=== PATIENT | female | born 1945 | race Two or more races ===

== ENCOUNTER 2024-08-12 08:40 | Day surgery (SDC) | payer MEDICARE, SELFPAY ==
--- NOTE | 2024-08-11 10:51 | EKG_ITS ---
[facility] Test Date: 2024-08-11 Pat Name: JENNIFER COSME Department: Room: - Gender: Female Filenet Developer: VAUGHN : 1945 Requested By: Raffy Genao Order Number: [id number] Reading MD: Raffy Genao Measurements Intervals Mcpherson Rate: 63 P: 38 MI: 158 QRS: 40 QRSD: 97 T: 39 QT: 406 QTc: 418 Interpretive Statements SINUS RHYTHM No previous ECG available for comparison /[id number]
--- NOTE | 2024-08-11 11:05 | XR_ITS ---
Examination: Left wrist 2 views Technique one AP lateral left wrist 2 views Exam date and time: August 11, 2024 1235 hours INDICATIONS: History wrist fracture FINDINGS: Subacute healing fracture distal radial metaphysis On the lateral view the distal radius is dorsally displaced at least 5 mm I do not have prior films for comparison IMPRESSION: Subacute healing fracture distal radial metaphysis
[2024-08-11 11:10] VITALS: BMI 42.7
[2024-08-11 13:16] LABS: Basophils % (Auto) 1 % (0-2.5); Eosinophils # (Auto) 0.1 Thou/mm3 (0.0-0.5); Eosinophils % (Auto) 2 % (0-10); Hematocrit 43.6 % (36.0-46.0); Hemoglobin 14.2 g/dL (12.0-16.0); Immature Granulocytes % (Auto) 0 % (0-0); Immature Granulocytes Auto 0.01 Thou/mm3 (0.00-0.00); Lymphocytes # (Auto) 1.6 Thou/mm3 (1.0-4.8); Lymphocytes % (Auto) 25 % (10-50); Mean Corpuscular HGB Conc 32.6 g/dl (31.0-37.0); Mean Corpuscular Hemoglobin 29.2 pg (25.0-35.0); Mean Corpuscular Volume 90 fL (80-100); Monocytes # (Auto) 0.6 Thou/mm3 (0.0-0.8); Monocytes % (Auto) 9 % (0-12); Neutrophils # (Auto) 4.1 Thou/mm3 (1.8-7.7); Neutrophils % (Auto) 64 % (37-80); Nucleated Red Blood Cell % 0 /100 WBC (0); Platelet Count 262 Thou/mm3 (140-440); RDW Standard Deviation 42.1 fL (36.4-46.3); Red Blood Count 4.86 Miln/mm3 (4.00-5.20); White Blood Count 6.4 Thou/mm3 (3.6-11.0)
[2024-08-11 13:24] LABS: INR 0.9 (0.9-1.3); Partial Thromboplastin Time 27.1 Seconds (22.0-36.0); Prothrombin Time 10.3 Seconds (9.0-12.2)
[2024-08-11 13:28] LABS: Alanine Aminotransferase 13 U/L (10-49); Albumin/Globulin Ratio 1.5 (1.2-2.2); Alkaline Phosphatase 120 U/L (46-116); Anion Gap 5 (7-16); Aspartate Amino Transferase 26 U/L (0-34); BUN/Creatinine Ratio 16 Ratio (12-20); Bilirubin,Total 1.5 mg/dL (0.3-1.2); Blood Urea Nitrogen 14 mg/dL (9-23); Calcium 10.3 mg/dL (8.3-10.6); Calcium (Corrected) 10.3 mg/dL (8.5-10.1); Chloride 103 mMol/L (98-107); Creatinine (Component) 0.9 mg/dL (0.6-1.3); Estimated Creatinine Clearance 40.2 mL/min (>60); Globulin 3.3 gm/dL (2.3-3.5); Glucose 100 mg/dL (74-106); Osmolality,Calculated 276 (275-295); Sodium 138 mMol/L (136-145); Total Protein 8.3 gm/dL (5.7-8.2); eGFR > 60 See Note
--- NOTE | 2024-08-11 14:17 | SUR.PREOP ---
Cardiac records reviewed with Dr Isaac.
--- NOTE | 2024-08-11 15:19 | SUR.PREOP ---
Pt notified to come in at 0900 tomorrow for surgery.
[2024-08-12] VITALS (10 sets, daily range): BP systolic 94–178; BP diastolic 55–87; PULSE 68–91; RESP 15–20; TEMP 36.2–36.9; O2SAT 95–100; BMI 28.5
--- NOTE | 2024-08-12 11:00 | XR_ITS ---
Examination: Left wrist 3 views Fluoroscopy Exam date and time: August 12, 2024 1306 hours INDICATIONS: Fracture distal radial metaphysis, operative reduction internal fixation wrist fracture today TECHNIQUE AND FINDINGS: 3 spot fluoroscopic films of the wrist Operative reduction internal fixation fracture distal radius with satisfactory alignment Orthopedic hardware satisfactory position Fluoroscopy 23 seconds radiation dose 0.43 milligray IMPRESSION: Operative reduction internal fixation fracture distal radius with satisfactory alignment
--- NOTE | 2024-08-12 12:40 | XR_ITS ---
Examination: Right wrist 2 views Technique one AP lateral right wrist 2 views Exam date and time: August 12, 2024 1324 hours INDICATIONS: Status post operative reduction internal fixation fracture distal radius FINDINGS: Operative reduction internal fixation fracture distal radius Satisfactory alignment Sideplate screw satisfactory position IMPRESSION: Operative reduction internal fixation fracture distal radius with satisfactory alignment
--- NOTE | 2024-08-12 12:46 | SUR.PHASEI ---
1246: Pt. AAOx4, vitals stable, breathing unlabored, no complaint of pain or nausea, dressing to left wrist CDI, no active bleed noted, cap refill to bilateral fingers less than 3 seconds, pt. able to wiggle bilateral fingers, report received from MD Isaac and Chata HACKETT.
--- NOTE | 2024-08-12 12:48 | PD.SUROPNT ---
Date of Procedure 08/12/24 Pre Op Diagnosis 4 weeks old angulated impacted displaced fracture left distal radius Post Op Diagnosis Same Procedure Open reduction internal fixation left distal radius with volar plate and interlocking screw. Synthes implant. 4-hole horizontal and 5 hole vertical volar plate Findings Refer dictation Procedure Description Patient was given general endotracheal anesthesia. Once satisfactory anesthesia achieved a tourniquet was placed on left upper arm. Following that part was thoroughly prepped and draped. Left arm block was also given Intravenous antibiotics was given at the time of anesthesia. After using Esmarch the tourniquet pressure was raised to 250 mmHg. I skin incision was made from the wrist crease extending proximally for about 3 to 4 inches long. Deeper dissection was carried out. The subcu tissue and fascia was incised. Following that a plane was developed between the brachioradialis muscle and flexor carpi radialis muscle. The radial nerve and artery was protected on the brachioradialis and median nerve was protected under flexor carpi radialis. Deeper dissection was carried out. The pronator quadratus muscle was encountered which was reflected. Fracture site was exposed. With the help of [place], curette the soft tissue interposed between the fracture fragment was removed Wound was irrigated with antibiotic solution every 4 to 5 minutes The help of periosteal elevator the distal fracture fragment was levered and was reduced. Position checked under C arm and found to be quite good Following that a 4 hole horizontal and 5 hole vertical volar plate was mounted over the flexor aspect of the distal radius. Once satisfactory position was achieved a K wire was passed to hold the plate in its position. Following that another drill hole was made over the vertical limb and appropriate size cortical screw was placed. Following that 2 screws in sequence were placed on the horizontal limb. Those were cortical screws and while tightening the volar tilt was maintained at the wrist crease. Following that another cortical screw was placed on the vertical limb. The K wire was removed. The position checked under C arm in both AP and lateral and was extremely good. The volar tilt was maintained and fracture was reduced almost anatomically Following that 2 interlocking screws were placed distally including radial styloid process was captured with the interlocking screw. On the vertical limb 2 interlocking screws was placed after drilling it. Wound was irrigated with antibiotic solution every 4 to 5 minutes Position was checked under C arm in both AP and lateral and found to be very good There was done with the help of 2-0 Vicryl in an interrupted fashion. Skin was closed with rosario After cleaning the wound with hydrogen peroxide solution a sterile dressing was applied. Short arm splint was applied and tourniquet pressure was released. Patient tolerated procedure well. Estimated blood loss 5 mL. Prognosis in this case is fair to good Anesthesia GETA and other Pathology / specimen None Estimated Blood Loss 5 Surgeon Raffy Mckeon MD Surgical Staff Operation Date: 08/12/24 11:15 Case Staff Anesthesiologist: Sundar Isaac RNplayer development manager: Randy Stephens
[2024-08-12] MEDS: fentaNYL CIT INJ 50 mCg/ML AMP 2ML IV ×2 (13:00→13:09)
[2024-08-12] MEDS: HYDROmorphone INJ 2 MG/ML VIAL 0.5 MG IV (13:38)
--- NOTE | 2024-08-12 14:36 | SUR.PHASEII ---
pt awake and alert, breathing unlabored on room air. v/s stable. pt dressing to left arm cdi, arm sling in place. pt able to ambulate to wheelchair with steady gait. d/c instructions given with granddaughter Starla in room, all questions answered. pt d/c via wheelchair with all belongings.
--- NOTE | 2024-08-12 15:16 | PD.ANESPROG ---
Documentation for date of: 08/12/24 ANESTHESIA NOTE: Patient had general LMA anesthesia with L supraclavicular nerve block for L radius ORIF earlier today. She did well intra-op and in PACU. Sundar Isaac MD Anesthesia Progress Note Progress Note Most recent Vital Signs: Last Vital Signs Temp 97.6 F 08/12/24 13:45 Pulse 83 08/12/24 13:45 Resp 16 08/12/24 13:45 BP 126/74 08/12/24 13:45 Pulse Ox 97 08/12/24 13:45 O2 Flow Rate 2 08/12/24 13:30
--- NOTE | 2024-08-12 15:28 | ESHP_ITS ---
RE: JENNIFER COSME : 1945 DATE OF ADMISSION: 08/12/2024 The patient came to my office on 08/11/2024 for detailed preoperative history and physical examination. HISTORY OF PRESENT ILLNESS: As per history available, the patient fell in [place] at her home. The injury happened on 07/17/2024. Subsequent to that, the patient went to emergency room in [facility] and x-ray was obtained. It revealed displaced, angulated, impacted fracture of the left distal radius. Splint was given and the patient was sent to her PCP. When I saw the patient, it was over 3 weeks old fracture anyway. I explained to the patient that surgical procedure could still be done, but there is no guarantee that I will be able to reduce it nicely, but the patient wanted to proceed with surgery. PAST MEDICAL HISTORY: The patient has history of high cholesterol, arthritis and osteoporosis. PAST SURGICAL HISTORY: The patient underwent right knee surgery in the past. DRUG HISTORY: The patient is on: 1. Alendronate. 2. Atorvastatin. 3. Omeprazole. 4. Trazodone. 5. Baclofen. FAMILY HISTORY AND SOCIAL HISTORY: The patient denies smoking, drinking and is not working. PHYSICAL EXAMINATION: GENERAL: Normal-built lady. VITAL SIGNS: Pulse 88 per minute, blood pressure 138/76. NECK: Soft, supple. No mass felt. Trachea is centrally placed. CARDIOVASCULAR: First and second heart sounds normal. No murmur heard. LUNGS: Bilateral vesicular breath sounds. CHEST: Clear. BREASTS: Not indicated in this case. The patient is advised to see the family physician for regular examination. EXTREMITIES: Left wrist examination revealed dinner fork deformity. Radial artery is palpable. The patient has very weak fist and unit educator and is painful. Range of motion at the wrist is severely restricted. DIAGNOSTIC DATA: X-ray confirmed displaced angulated, impacted fracture of the left distal radius. The patient and the family were explained that I can try to do surgery and reduce the fracture with the help of plate and screws, but no guarantee is given regarding the functional outcome and/or the good reduction. Risk with anesthesia was explained and that includes, but not limited to reaction to anesthetic agents, cardiac arrest and rarely it might be fatal. Risk with operation includes infection, and if that happens, the patient may need further surgical procedure. Other risks include delayed healing, wound dehiscence, etc. Sometime rare complication including RSD may happen and if that happens, that has to be taken care of. Generally speaking these kind of fracture predispose early arthritic changes and the patient is fully aware of that. There is a possibility of restrict of the movement and the patient is again fully aware of it. Accordingly, surgery is booked for 08/12/2024. Appropriate lab work was done. DT: 12:58:12 TT: 15:23:00 Ref: [id number] - TID: [id number]
== END 2024-08-12 14:36 | disposition home or self-care (01) ==
PROVIDERS: Anesthesiology; PCP Internal Medicine Hospice and Palliative Medicine; Referring Provider Orthopaedic Surgery; Visit Provider Orthopaedic Surgery
PROC: (CPT 25607; principal; 2024-08-12 11:00)
DX: S52.502A Unspecified fracture of the lower end of left radius, initial encounter for closed fracture (principal); M81.0 Age-related osteoporosis without current pathological fracture; E78.00 Pure hypercholesterolemia, unspecified; Z01.810 Encounter for preprocedural cardiovascular examination
CPT/HCPCS: 25607; 36415; 73100; 76000; 80053; 85025; 85610; 85730; 93005; A4649; C1713; J0690; J1100; J1580; J2250; J2704; J2765; J2795; J3010; J3490; J1805